=== PATIENT | female | born 1955 | race Caucasian/White ===

== ENCOUNTER 2018-05-12 08:38 | Outpatient (CLI) | payer OTHER ==
--- NOTE | 2018-05-12 11:21 | ULT ---
ABDOMINAL ULTRASOUND COMPLETE: Date: 05/12/18 HISTORY: 62-year-old female with history of splenomegaly. Elevated white blood cell count. FINDINGS: Liver echogenicity is slightly coarse. The gallbladder demonstrates no evidence of gallstones, wall t hickening, edema, or pericholecystic fluid. Common bile duct is 0.4 cm. Visualized pancreas, IVC, aor ta, and spleen are unremarkable. There is no splenomegaly. Slight fullness of the right renal extrare nal pelvis without evidence for significant caliectasis. IMPRESSION: Unremarkable abdomen ultrasound. No splenomegaly. No evidence of gallstones. POS: [facility]
== END 2018-05-12 08:39 | disposition home or self-care (01) ==
LOC: SCSULT 08:38
PROVIDERS: ATTEND Internal Medicine Hematology & Oncology
DX: R16.1 Splenomegaly, not elsewhere classified (principal); D72.818 Other decreased white blood cell count
CPT/HCPCS: 76700